=== PATIENT | female | born 1980 | race African-American/Black ===

== ENCOUNTER 2018-07-27 15:54 | Emergency (ER) | payer SELFPAY, OTHER | END 2018-07-27 18:49 | disposition left against medical advice (07) | LOC: FTE 18:49 | DX: Z53.21 Procedure and treatment not carried out due to patient leaving prior to being seen by health care provider (principal) ==

== ENCOUNTER 2018-09-01 08:15 | Emergency (ER) | payer OTHER | END 2018-09-01 09:00 | disposition home or self-care (01) | LOC: FTE 08:15 | DX: I10 Essential (primary) hypertension (principal); F17.210 Nicotine dependence, cigarettes, uncomplicated | CPT/HCPCS: 99281; Z7502 ==